=== PATIENT | female | born 1975 | race Caucasian/White ===

== ENCOUNTER → 2023-10-17 08:31 | Outpatient (REF) | payer OTHER, SELFPAY | LOC: HWRAD 08:31 | PROVIDERS: ATTENDING PHYSICIAN Nurse Practitioner Women's Health; FAMILY PHYSICIAN Physician Assistant Medical; REFERRING PHYSICIAN Obstetrics & Gynecology | DX: N92.6 Irregular menstruation, unspecified (principal) | CPT/HCPCS: 76830; 76856 ==

== ENCOUNTER → 2024-03-22 07:27 | Outpatient (REF) | payer OTHER, SELFPAY ==
[2024-03-22 10:18] LABS: ALT (SGPT) 25 U/L (0-35); AST (SGOT) 28 U/L (14-36); Albumin 4.3 g/dl (3.5-5.0); Alkaline Phosphatase 62 U/L (38-126); Blood Urea Nitrogen 12 mg/dl (7-17); Calcium 9.2 mg/dl (8.4-10.2); Carbon Dioxide 22 mmol/L (22-30); Chloride 106 mmol/L (98-107); Glucose 109 mg/dl (70-99); HDL Cholesterol 49 mg/dl; LDL Cholesterol, Calculated 94 mg/dl; Potassium 4.3 mmol/L (3.5-5.1); Sodium 141 mmol/L (135-145); Total Bilirubin 0.4 mg/dl (0.2-1.3); Total Cholesterol 157 mg/dl (50-199); Total Protein 6.8 g/dl (6.3-8.2); Triglyceride 71 mg/dl (10-149); Very Low Density Lipoprotein 14 mg/dl (0-30); eGFR > 60.00
[2024-03-22 11:28] LABS: Glycohemoglobin (HgbA1c) 5.4 % (4.0-5.6)
== END ==
LOC: HWWDC 07:27
PROVIDERS: ATTENDING PHYSICIAN Obstetrics & Gynecology; FAMILY PHYSICIAN Physician Assistant Medical
DX: Z12.31 Encounter for screening mammogram for malignant neoplasm of breast (principal); R03.0 Elevated blood-pressure reading, without diagnosis of hypertension; R73.01 Impaired fasting glucose; Z68.1 Body mass index [BMI] 19.9 or less, adult; E78.2 Mixed hyperlipidemia; N95.1 Menopausal and female climacteric states
CPT/HCPCS: 36415; 77063; 77067; 80053; 80061; 83036

== ENCOUNTER → 2024-07-27 13:21 | Outpatient (REF) | payer OTHER, SELFPAY | LOC: HWRAD 13:21 | PROVIDERS: ATTENDING PHYSICIAN Obstetrics & Gynecology; FAMILY PHYSICIAN Physician Assistant Medical | DX: N92.6 Irregular menstruation, unspecified (principal) | CPT/HCPCS: 76830; 76856 ==

== ENCOUNTER 2024-10-09 23:32 | Emergency (ER) | payer OTHER, SELFPAY ==
[2024-10-09 23:39] VITALS: BP 158/98
[2024-10-10 00:29] LABS: COVID-19 Antigen Negative (Negative); HCG, Serum Qualitative Screen Negative
[2024-10-10 00:37] LABS: Blood Urea Nitrogen 16 mg/dl (7-17); Calcium 9.2 mg/dl (8.4-10.2); Carbon Dioxide 22 mmol/L (22-30); Chloride 105 mmol/L (98-107); Glucose 144 mg/dl (70-99); Potassium 3.7 mmol/L (3.5-5.1); Sodium 135 mmol/L (135-145); eGFR > 60.00
[2024-10-10 00:43] LABS: Hematocrit 35.2 % (37.0-47.0); Hemoglobin 13.1 g/dL (12.0-16.0); Mean Corp Hgb Conc. 37.2 g/dL (33.0-37.0); Mean Corpuscular Volume 83.2 fL (81.0-99.0); Mean Platelet Volume 10.1 fL (7.4-10.4); Platelet Count 129 10^3/uL (130-400); Red Blood Cell Count 4.23 10^6/uL (4.20-5.40); Red Cell Dist. Width 12.1 % (11.5-14.5); White Blood Cell Count 3.1 10^3/uL (4.8-10.8)
[2024-10-10 00:49] VITALS: BMI 38.9
[2024-10-10 00:51] VITALS: BP 134/80
--- NOTE | 2024-10-10 01:57 | ED.GENMED ---
History of Present Illness
General
Chief Complaint: Fever
Source: patient
Exam Limitations: none
Time Seen by Provider: 10/10/24 01:45
History of Present Illness
History of Present Illness:
See MDM
Past History
Past History
ED Past Medical History: None
ED Past Surgical History: None
Social History
Tobacco: Non-smoker
Alcohol: None
Phy Exam
Physical Exam
Physical Exam:
See MDM
Sepsis
Sepsis Screening
Sepsis Assessment: Sepsis Ruled Out
Sepsis Screen
Sepsis Screen: Sepsis Ruled Out
Date: 10/10/24
Time: 02:01
Course
Orders/Labs/Results
Orders:
Orders
10/09/24 23:44
Test Result ONCE
10/09/24 23:53
Basic Metabolic Panel Urgent
COVID-19 Antigen Urgent
Source: Nasal Swab
Complete Blood Count/No Diff Urgent
HCG, Serum Qualitative Screen Urgent
Influenza A+B Rapid Molecular Urgent
EVELINE Source: Nasal Swab
Specimen Description:
Abnormal Lab Results
10/09/24
23:53
WBC 3.1 L 10^3/uL
(4.8-10.8)
Hct 35.2 L %
(37.0-47.0)
MCHC 37.2 H g/dL
(33.0-37.0)
Plt Count 129 L 10^3/uL
(130-400)
Glucose 144 H mg/dl
(70-99)
10/09/24 23:53
10/09/24 23:53
Vital Signs
Initial and Last Documented VS:
Initial Vital Signs
Temp Pulse Resp BP Pulse Ox
99.5 F 108 20 158/98 96
10/09/24 23:39 10/09/24 23:39 10/09/24 23:39 10/09/24 23:39 10/09/24 23:39
Last Documented Vital Signs
Temp Pulse Resp BP Pulse Ox
99.6 F 92 16 134/80 96
10/10/24 00:51 10/10/24 00:51 10/10/24 00:51 10/10/24 00:51 10/10/24 00:51
MDM/Problems Addressed
Differential Diagnosis Includes:
HPI and MDM Narrative:
49-year-old female presenting for evaluation of fever. It started earlier today. Patient was concerned because medicine was not helping with her fever. On arrival, she states the fever started to break and she started to feel better. She denies
any specific complaint such as shortness of breath, cough, abdominal pain, rash, throat pain, ear pain or urinary symptoms. Blood work was done prior to my assessment showing mild leukopenia which could point towards viral syndrome. COVID and flu
negative. Given that she is feeling better with no specific complaint, discussed likely viral syndrome
Physical exam
General: Well appearing and non-toxic
HEENT: protecting airway. Posterior pharynx clear
Neck: supple
CV: No evidence of cyanosis. Regular rate and rhythm
Resp: No accessory muscle use. Lungs clear
Abd: Non-distended and nontender
Extremities: No deformities
Neuro: alert
Psych: Normal affect
Skin: Intact
Problems Addressed including Acute and Chronic Conditions affecting care:
1. Viral syndrome
Acuity: acute
Prognosis: stable
Details: Patient feeling better after taking medicine at home. No suggestion of bacterial infection. No obvious source.
Differential Diagnosis (but not limited to): Viral syndrome, COVID, flu
Testing considered: Chest x-ray and urinalysis but she denies complaints for either
Drug therapy (if applicable): OTC meds, please see d/c instruction regarding Rx drugs
Amount and/or Complexity of Data Reviewed
Clinical info obtained from: Patient
External data reviewed: N/A
Labs I independently reviewed (but not limited to): Mild leukopenia
Radiology: N/A
Pulse Ox: not hypoxic
EKG independently reviewed: N/A
Apprentice Painter Brush: N/A
Critical Care: N/A
Risk of Complication:
Social Determinants of health: Good social support
Discussed with other providers: N/A
Escalation of Care includes Admit/Obs: After being observed in the Emergency Department, pt stable for discharge.
Occasional wrong word or 'sound a like' substitutions may have occurred due to the inherent limitations of voice recognition software. Read the chart carefully and recognize, using context, where substitutions have occurred.
*Critical Care Note
Total Time (30-74mins, 75-104mins- exclusive of procedures): Not Applicable
ED Attending Note
-
Portions of this chart may have been created with voice recognition software.� Occasional wrong word or��sound alike� substitutions may have occurred due to the inherent limitations of voice recognition software.
Discharge Plan
Departure
Patient Disposition: Home (Routine Discharge)
Date of Disposition: 10/10/24
Time of Disposition: 02:00
Patient with high blood pressure during this ER visit?: No
Discharge Problem:
Acute viral syndrome
Instructions: Fever, Adult (DC), Viral Syndrome (DC)
Referrals:
Stefanie Vilchis PA-C [Family Provider] -
Activity Restrictions/Additional Instructions:
Please return for any worsening symptoms.
You may return at any time if you have further concerns.
Please follow up with your doctor at the first available appointment, preferably this week.
Please alternate between Tylenol and Motrin every 4 hours or so until symptoms improve.
Thank you for choosing [facility].
Interventions
Interventions:
*Risk Screen - Suicide Last Done: 10/09/24 23:39
*General Assessment Last Done: 10/10/24 00:47
*Neglect/Abuse Screening Last Done: 10/09/24 23:39
*ED- Fall Risk Assessment Last Done: 10/10/24 00:47
*ED COVID-19 Vaccine History Last Done: 10/10/24 00:47
ED- Neurological Assessment Last Done: 10/10/24 00:47
ED-Skin Assessment Last Done: 10/10/24 00:53
Discharge Date and Time
Print Language: ALBANIAN
[2024-10-10 02:15] VITALS: BP 123/78
== END 2024-10-10 02:18 | disposition home or self-care (01) ==
LOC: EMR 23:32
PROVIDERS: Emergency Medicine; EMERGENCY PHYSICIAN Student in an Organized Health Care Education/Training Program; FAMILY PHYSICIAN Physician Assistant Medical
DX: B34.9 Viral infection, unspecified (principal)
CPT/HCPCS: 99283; 80048; 84703; 85027; 87502; 87811

== ENCOUNTER 2024-10-11 12:35 | Inpatient (IN) | payer OTHER, SELFPAY ==
[2024-10-11 03:49] VITALS: BP 150/88
[2024-10-11 04:01] VITALS: BMI 36.0
--- NOTE | 2024-10-11 04:11 | ED.GENMED ---
History of Present Illness
General
Chief Complaint: Urinary Symptoms
Source: patient
Exam Limitations: none
Time Seen by Provider: 10/11/24 04:01
Nursing documentation reviewed up to this point in time: agreed with
History of Present Illness
History of Present Illness:
49-year-old female with a past medical history of hyperthyroidism presents emergency department today with concerns of fevers and chills as well as orange-colored urine. She was seen in our ER Friday for fevers of unknown origin and she had blood
work done as well as viral testing which was negative. She states that she has been taking Tylenol Motrin for the fever however today, she woke up in the middle of the night and was found to have orange-colored urine which concerned her. She
denies any abdominal pain, body aches, decreased appetite, vomiting. She states that she has had intermittent nausea. She is not healthcare worker, she denies any IV drug use, denies any body flu exposure. She denies any sick contacts.She denies
any dysuria, she denies any new medications, she has any blood in her urine, denies any rectal bleeding. Her last menstrual period was 4 months ago.
Past History
Past History
ED Past Medical History: None
ED Past Surgical History: None
Social History
Tobacco: Non-smoker
Alcohol: None
Review of Systems
Review of Systems
All Other Systems: ROS reviewed and negative except as documented in HPI and ROS
Phy Exam
Physical Exam
Physical Exam:
General: Patient is well appearing and in no acute distress; non-toxic
Skin: Warm and dry, no rashes or lesions
Head: Normocephalic, atraumatic
Eyes: Sclera non-icteric. EOMs intact.
Cardiac: Regular rate and rhythm, no murmurs
Peripheral Vascular: No lower extremity swelling or edema
Pulm: Normal respiratory effort, no wheezes, rales, or rhonchi
Abdomen: No abdominal tenderness to palpation
Neuro: CN II-XII intact, no focal neurologic deficits.
Psychiatric: Appropriate mood and affect.
Course
Orders/Labs/Results
Orders:
Orders
10/11/24 04:06
Urinalysis Reflex To Culture Urgent
Date Specimen was Collected: 10/11/24
Time Specimen was Collected: 04:05
Urine Microscopic Reflex Cult Urgent
Urine Culture Urgent
EVELINE Source: U
Specimen Description:
Date Specimen was Collected: 10/11/24
Time Specimen was Collected: 04:05
10/11/24 05:00
CPK [Creatine Phosphokinase] Urgent
Complete Blood Count/With Diff Urgent
Comprehensive Metabolic Panel Urgent
Lipase Urgent
Comment: ADD ON
Monotest Urgent
Comment: ADD ON
10/11/24 05:42
US Abdomen Complete/Upper Urgent
Comment:
Reason For Exam: transaminitis, bilirubinurea
10/11/24 05:48
Add On- LAB Urgent
Tests Added?: mono and lipase
10/11/24 05:55
Hepatitis A Antibody, Total Urgent
Hepatitis A IgM Antibody Urgent
Hepatitis B Core Ab, IgM Urgent
Hepatitis B Core Ab, Total Urgent
Hepatitis B Surface Antibody Urgent
Hepatitis B Surface Antigen Urgent
Hepatitis C Antibody Urgent
10/11/24 06:55
Anaplasma phagocytophila IgG/M [S] Urgent
Lyme Progressive Urgent
Babesia Smear [Blood Parasites] Urgent
EVELINE Source: Blood/Venous
Specimen Description:
Abnormal Lab Results
10/11/24 10/11/24
04:06 05:00
WBC 2.1 L* 10^3/uL
(4.8-10.8)
Plt Count 100 L D 10^3/uL
(130-400)
Chloride 109 H mmol/L
(98-107)
BUN 6 L mg/dl
(7-17)
Glucose 108 H mg/dl
(70-99)
Total Bilirubin 1.7 H mg/dl
(0.2-1.3)
AST 356 H U/L
(14-36)
ALT 552 H* U/L
(0-35)
Alkaline Phosphatase 167 H U/L
(38-126)
Total Protein 6.1 L g/dl
(6.3-8.2)
Ur Occult Blood Reflex 3+ A
(Negative)
Urine Bilirubin 1+ A
(Negative)
Urine Urobilinogen 3+ A
(Neg - 1+)
Leukocyte Esterase Rfl 1+ A
(Negative)
Urine RBC 16-20 A /HPF
(0-2)
Urine Bacteria (Reflex) Moderate A
(Negative)
Urine Albumin (Reflex) 2+ A
(Neg - Trace)
10/11/24 05:00
10/11/24 05:00
Vital Signs
Initial and Last Documented VS:
Initial Vital Signs
Temp Pulse Resp BP Pulse Ox
97.9 F 84 18 150/88 98
10/11/24 03:49 10/11/24 03:49 10/11/24 03:49 10/11/24 03:49 10/11/24 03:49
Last Documented Vital Signs
Temp Pulse Resp BP Pulse Ox
98.6 F 82 20 139/78 100
10/11/24 07:05 10/11/24 07:05 10/11/24 07:05 10/11/24 07:05 10/11/24 07:05
MDM/Problems Addressed
Differential Diagnosis Includes:
Acute cystitis, viral hepatitis, acalculous cholecystitis, tickborne illness, malignancy
MDM/Problems Addressed:
49 y/o female for an acute hepatitis/fevers of unknown origin. 49 y/o female hx of hyperthyroidism comes in this morning as a bounce back for fevers of unknown origin. On Sat 4, she started to have fevers, Tmax 102 with no other associated
symptoms. She was seen in our ER that night, tested negative for flu and covid, cbc and bmp unremarkable. She has been managing her fevers with tylenol and motrin. This morning she woke up and noticed that her urine was orange and reported to the
ER. She has no hepatitis risk factors. She has no belly pain, dysuria, sob, cp. On exam, she looks great and she is afebrile. Her wbc count is 2.1, she is thrombocytopenic at 100, her total bili is 1.7, ast is 356, alt is 552 urine shows rbcs and
bilirubin. Her WBC and bili have trended down since Friday. We did get abdominal ultrasound as well which was negative. Hepatitis panels and tick borne illness studies pending. In light of persistent fevers, worsening blood work, new
transaminitis, and bounce back visit, will admit for further evaluation workup. Case discussed with the ER attending who agrees with plan. Patient referred for admission
*Pulse Oximetry
Patient hypoxic: no
*Critical Care Note
Total Time (30-74mins, 75-104mins- exclusive of procedures): Not Applicable
Data Reviewed
Review of Other/Old Records Reveals: Records (Reviewed ER/documentation from/ reviewed ER/documentation from/, patient. Seen for viral syndrome, discharged after unremarkable workup)
ED Attending Note
-
Portions of this chart may have been created with voice recognition software.� Occasional wrong word or��sound alike� substitutions may have occurred due to the inherent limitations of voice recognition software.
Discharge Plan
Departure
Patient Disposition: Admit
Date of Disposition: 10/11/24
Time of Disposition: 07:20
Admit to: Med/Surg
Presentation/result/management discussed w/ accepting MD/DO: Hospitalist
Patient with high blood pressure during this ER visit?: Yes
Condition: Fair
Discharge Problem:
Acute hepatitis
Prescriptions:
No Action
No Current Medications
0
Referrals:
Stefanie Vilchis PA-C [Family Provider] -
Interventions
Interventions:
*Risk Screen - Suicide Last Done: 10/11/24 03:49
*General Assessment Last Done: 10/11/24 04:01
*Neglect/Abuse Screening Last Done: 10/11/24 03:49
*ED- Fall Risk Assessment Last Done: 10/11/24 04:01
*ED COVID-19 Vaccine History Last Done: 10/11/24 04:01
ED-Female Genitourinary Assessment Last Done: 10/11/24 04:01
Discharge Date and Time
Print Language: CHINESE
[2024-10-11 04:19] LABS: Urine Albumin 2+ (Neg - Trace); Urine Bilirubin 1+ (Negative); Urine Character Clear (Clear); Urine Color Yellow; Urine Glucose Negative (Negative); Urine Ketone Negative (Negative); Urine Leukocyte 1+ (Negative); Urine Nitrite Negative (Negative); Urine Occult Blood 3+ (Negative); Urine Urobilinogen 3+ (Neg - 1+)
[2024-10-11 05:36] LABS: ALT (SGPT) 552 U/L (0-35); AST (SGOT) 356 U/L (14-36); Albumin 3.6 g/dl (3.5-5.0); Alkaline Phosphatase 167 U/L (38-126); Blood Urea Nitrogen 6 mg/dl (7-17); Calcium 8.7 mg/dl (8.4-10.2); Carbon Dioxide 25 mmol/L (22-30); Chloride 109 mmol/L (98-107); Creatine Phosphokinase 98 U/L (30-135); Estimated Creatinine Clearance 95 ml/min; Glucose 108 mg/dl (70-99); Potassium 3.7 mmol/L (3.5-5.1); Sodium 139 mmol/L (135-145); Total Bilirubin 1.7 mg/dl (0.2-1.3); Total Protein 6.1 g/dl (6.3-8.2); eGFR > 60.00
[2024-10-11 06:06] LABS: Lipase 165 U/L (23-300)
[2024-10-11 06:06] LABS: Urine Squamous Cell >30 /LPF (Few)
[2024-10-11 06:11] LABS: Urine Bacteria Moderate (Negative); Urine Red Blood Cell 16-20 /HPF (0-2)
[2024-10-11 06:11] LABS: Monotest Negative (Negative)
[2024-10-11 06:22] LABS: Hematocrit 38.6 % (37.0-47.0); Hemoglobin 13.8 g/dL (12.0-16.0); Mean Corp Hgb Conc. 35.8 g/dL (33.0-37.0); Mean Corpuscular Hgb 29.5 pg (27.0-31.0); Mean Corpuscular Volume 82.5 fL (81.0-99.0); Mean Platelet Volume 9.7 fL (7.4-10.4); Platelet Count 100 10^3/uL (130-400); Red Blood Cell Count 4.68 10^6/uL (4.20-5.40); Red Cell Dist. Width 12.5 % (11.5-14.5); White Blood Cell Count 2.1 10^3/uL (4.8-10.8)
[2024-10-11 07:05] VITALS: BP 139/78
[2024-10-11 08:30] LABS: Band Neutrophils 14 % (0-3); Lymphocytes 27 % (20-51); Metamyelocytes 1 % (-); Monocytes 4 % (2-9)
[2024-10-11 08:31] LABS: Absolute Neutrophils -Man Diff 1.3 10^3/uL (1.4-6.5); Atypical Lymphocytes 2 %; Segmented Neutrophils 52 % (42-75)
[2024-10-11 08:32] LABS: Acanthocytes FEW; Anisocytosis Slight; Normal RBC Morphology No; Ovalocytes Slight; Platelets Checked Yes; Total Cells Counted 100
--- NOTE | 2024-10-11 08:59 | EDRN ---
hospitalist currently at the pts bedside
--- NOTE | 2024-10-11 11:06 | CON.GI ---
Addendum entered and electronically signed by Hortencia Wyatt DO 10/11/24 16:30:
The patient was seen and examined by me independently in collaboration with the nurse practitioner.
Past medical history/social history/medications/allergies/family history reviewed.
Lab data and imaging data reviewed.
Briefly, patient is a 49-year-old female past medical history Graves' disease status post thyroidectomy with resultant hypothyroidism, hyperlipidemia, hypertension, depression admitted with 2 days of fevers and headaches found to have multiple lab
abnormalities including leukopenia, thrombocytopenia and elevated liver enzymes. She denies travel, sick contacts, recent antibiotics, exposure ticks. She does report taking some supplements. When she noticed her urine turn orange, it prompted her
to come in for evaluation. LFTs elevated in predominantly hepatocellular pattern, Tbili 1.7, AST 356, ALT 552, Alk phos 167. CK normal. Lipase normal.
Abdominal US shows normal appearance of her liver. Coags pending.
Suspect primary hematologic or infectious etiology rather than primarily liver issue. Will follow along as her studies continue to result.
Original Note:
Consultation
-
Date/Time Consultation Requested: 10/11/24 1050
Date/Time Consultation Performed: 10/11/24 1100
Requesting Provider: Rosa Maria Porter MD
Performing Provider: HEIDY Neal, Nga Wyatt DO
Reason for Consultation: increased LFT's
Medical History
Chief Complaint / HPI
Chief Complaint: fever, dark urine
History of Present Illness:
Pt is a 49yo with hx graves disease with prior thyroidectomy, HTN, hyperlipidemia, depression recent increased Lexapro dose, with ER eval 4/ with fever. ER labs with neg flu, WBC 3.1 with platelets 129,000 and glucose 144 and LFT's were not
checked. She was discharged with concern for viral syndrome. She returned with dark urine and nausea. On returns noted with WBC 2.1, platelets 100,000 bili 1,7, AST 356, ALT 552, alk phos 67 albumin 3.6, lipase 165, CK 98, with UA + for bacteria
and bilirubin CK 98. 4/7 US completed with liver normal size. She denies any recent travel, abx, sick contact.
In review with patient she admits to hard work out on Friday with muscle soreness after completed . She took new supplement of Creatine Friday and Friday. On Friday she developed fever up to 102. She persisted with fever and had evaluation
in ER and discharged. She returned as noted orange color urine. She admits to multiple supplement but only new supplement was creatine. She did also increased increased Lexapro dose about 2 weeks ago. She did take 2 doses of Tylenol and 2 doses
of Advil after fever symptoms started. No hx ETOH use, tattoos, mushroom ingestion, recent rashes, tick bites, hx hepatitis or prior liver problems. She otherwise admits to intentional wt loss 15-16 lbs over last years without use of wt loss
medication, dysphagia, sore throat, GERD, nausea, vomiting, abdominal pain, diarrhea, constipation or rectal bleeding.
Past Medical History
Past Medical History: HTN, Hypercholesterolemia, Psychiatric (depression) and Other (pre DM, graves disease)
Past Surgical History: Other (thyroidectomy)
Social History
Tobacco: Non-Smoker
Alcohol: None
Drug: None
Personal:
Living: With Family
Employment: Employed
Family History
Family History: Other (sister with fatty liver and lipodistrophy)
Allergies / Home Medications
Allergy/AdvReac Type Severity Reaction Status Date / Time
amoxicillin [From Augmentin] Allergy Unknown Verified 10/11/24 03:51
clavulanic acid Allergy Unknown Verified 10/11/24 03:51
[From Augmentin]
egg Allergy Unknown Verified 10/11/24 03:51
Tetracyclines Allergy Unknown Verified 10/11/24 03:51
�Medication �Instructions �Recorded
Beet Root Tablets 1 tab PO DAILY 10/11/24
acetaminophen 325 mg tablet 650 mg PO Q4HPRN PRN fever 10/11/24
(Tylenol)
ascorbic acid (vitamin C) 500 mg 500 mg PO DAILY 10/11/24
tablet (Vitamin C)
cholecalciferol (vitamin D3) 50 50 mcg PO DAILY 10/11/24
mcg (2,000 unit) tablet (Vitamin
D3)
coQ10 (ubiquinol) 100 mg capsule 100 mg PO DAILY 10/11/24
escitalopram oxalate 20 mg tablet 30 mg PO HS 10/11/24
(Lexapro)
ibuprofen 200 mg tablet (Advil) 400 mg PO Q8HPRN PRN mild pain 10/11/24
levothyroxine 88 mcg tablet 88 mcg PO DAILY 10/11/24
(Synthroid)
loratadine 10 mg tablet (Claritin) 10 mg PO DAILY 10/11/24
omega-3 fatty acids-fish oil 684 1 cap PO DAILY 10/11/24
mg-1,200 mg capsule,delayed release
rosuvastatin 5 mg tablet (Crestor) 5 mg PO QPM 10/11/24
therapeutic multivitamin 10 ml PO DAILY 10/11/24
Review of Systems
-
History Source: Patient and Family
Constitutional: Reports Fever and Weight Loss
EENT: Reports No Symptoms
Respiratory: Reports No Symptoms
Cardiac: Reports No Symptoms
Abdomen/GI: Reports No Symptoms
: Reports Dark Urine
Musculoskeletal: Reports Joint Pain (with recent work out now improved )
Skin: Reports No Symptoms
Neurological: Reports Headache (mild sinus DAMON)
Endocrine: Reports No Symptoms
Hematologic/Lymphatic: Reports No Symptoms
Vital Signs
Temp Pulse Resp BP Pulse Ox
98.6 F 82 20 139/78 100
10/11/24 07:05 10/11/24 07:05 10/11/24 07:05 10/11/24 07:05 10/11/24 07:05
Physical Exam
Exam
General: Well Developed, Well Nourished and No Apparent Distress
HEENT: Normocephalic and Anicteric
Respiratory: Clear
Cardiac: Regular Rhythm
GI: Soft, Non Tender and Non Distended
Musculoskeletal: No Clubbing and No Cyanosis
Skin: Warm and Dry
Neuro: Awake, Alert and AO x 3
Psych: Calm
Results
WBC 2.1 10^3/uL (4.8-10.8) L* 10/11/24 05:00
Hgb 13.8 g/dL (12.0-16.0) 10/11/24 05:00
Hct 38.6 % (37.0-47.0) 10/11/24 05:00
MCV 82.5 fL (81.0-99.0) 10/11/24 05:00
Plt Count 100 10^3/uL (130-400) L D 10/11/24 05:00
Sodium 139 mmol/L (135-145) 10/11/24 05:00
Potassium 3.7 mmol/L (3.5-5.1) 10/11/24 05:00
Chloride 109 mmol/L (98-107) H 10/11/24 05:00
Carbon Dioxide 25 mmol/L (22-30) 10/11/24 05:00
BUN 6 mg/dl (7-17) L 10/11/24 05:00
Creatinine 0.7 mg/dL (0.6-1.0) 10/11/24 05:00
Calcium 8.7 mg/dl (8.4-10.2) 10/11/24 05:00
Total Bilirubin 1.7 mg/dl (0.2-1.3) H 10/11/24 05:00
AST 356 U/L (14-36) H 10/11/24 05:00
ALT 552 U/L (0-35) H* 10/11/24 05:00
Alkaline Phosphatase 167 U/L (38-126) H 10/11/24 05:00
Lipase 165 U/L (23-300) 10/11/24 05:00
Diagnostic Image Results:
10/11/24 US IMPRESSION: Unremarkable ultrasound of the abdomen
Prior GI Procedures:
EGD: none
Colonoscopy: x 2 years ago for rectal bleeding years ago, recent neg Cologuard
Assessment / Plan
-
Pt is a 49yo with hx graves disease with prior thyroidectomy, HTN, hyperlipidemia, depression recent increased Lexapro dose, with ER eval 10/09 with fever after noted hard workout on 10/08. ER labs with neg flu, WBC 3.1 with platelets 129,000 and
glucose 144 and LFT's were not checked. She was discharged with concern for viral syndrome. She returned with dark urine and nausea. On returns noted with WBC 2.1, platelets 100,000 bili 1,7, AST 356, ALT 552, alk phos 67 albumin 3.6, lipase 165,
CK 98, with UA + for bacteria and bilirubin CK 98. 10/11 US completed with liver normal size. She denies any recent travel, abx, sick contact. No hx prior liver problems. She took new supplement of Creatine Friday and Friday. On Friday she
developed fever up to 102. She persisted with fever and had evaluation in ER and discharged. She returned as noted orange color urine. She admits to multiple supplement but only new supplement was creatine. She did also increased increased
Lexapro dose about 2 weeks ago. She did take 2 doses of Tylenol and 2 doses of Advil after fever symptoms started. No hx ETOH use, tattoos, mushroom ingestion, recent rashes, tick bites, hx hepatitis or prior liver problems.
-fever with bandemia
-increased LFT's with dark urine on admission
-recent hard workout with creatine use prior to admission
-thrombocytopenia
other med problems:
-depression with recent increased dose of Lexapro
-thyroidectomy/ hx graves disease
-HTN
-hyperlipidemia
PLAN:
Etiology of fever with elevated LFT's and leukocytopenia, thrombocytopenia related to viral illness vs other
pt with recent increased dose of Lexapro with rare post marketing liver dysfunction, immune thrombocytopenia per up to date
with recent workout and normal CK less likely Rhabdo
lyme negative
await INR
await hepatitis panel , EBV, CMV
BART, Tylenol level, pending
add blood cultures with fever
trend labs and INR
with concern for liver dysfunction and thrombocytopenia review with patient to hold liver toxic medication, ETOH (pt denies use) and hold creatine that was just started
will review with Dr. Wyatt for further recommendations
-
-
Thank you for consultation and allowing me to participate in the patient's care. Please call the sed special education teacher GI physician during the after hours with any questions or concerns.
--- NOTE | 2024-10-11 11:35 | EDRN ---
gastroenterology currently at the pts bedside
--- NOTE | 2024-10-11 11:45 | CM ---
CM met with pt and spouse bedside
[place], full flight to 2nd floor
Pt is indep with her ADLs, denies use of DMEs
Denies financial insecurities
Rx coverage managed through [facility]
PCP- Stefanie Vilchis
Rx- [facility]
Discharge Disposition- anticipate home no needs
[2024-10-11 11:53] LABS: Lyme Antibody Screen, EIA Negative (Negative)
[2024-10-11 12:00] VITALS: BP 136/84
[2024-10-11 14:45] VITALS: BP 127/91
--- NOTE | 2024-10-11 14:51 | EDRN ---
this RN called the receiving unit and notified them that paper report was going to be tubed up
[2024-10-11 15:30] VITALS: BMI 35.6
[2024-10-11 15:34] VITALS: BP 137/85
[2024-10-11] MEDS: NSS 1000 IV (15:48)
[2024-10-11] MEDS: MOTRIN 400 MG PO (16:31)
[2024-10-11 17:48] LABS: Creatine Phosphokinase 81 U/L (30-135)
[2024-10-11 18:30] LABS: Erythrocyte Sed Rate 18 mm/hour (0-20)
[2024-10-11 19:00] LABS: Hepatitis B Surface Antigen Negative (Negative)
[2024-10-11 19:19] LABS: Hepatitis A Antibody, Total Negative (Negative); Hepatitis B Core Ab, Total Negative (Negative); Hepatitis B Surface Antibody Negative; Hepatitis C Antibody Negative (Negative)
--- NOTE | 2024-10-11 19:43 | HPS.HSE ---
Addendum entered and electronically signed by Michelle Peraza MD 10/11/24 20:29:
I personally performed a history and physical exam of the patient and discussed management with the resident. I reviewed the resident's note and agree with the documented findings and plan of care HPI/CC.
GENERAL: well developed, well nourished, female in no apparent distress
HEENT: NC/AT--no scleral icterus, no jaundice
HEART: regular rate and rhythm, +S1, +S2
LUNGS : clear to auscultation bilaterally
ABDOM: soft, nontender, nondistended, + bowel sounds
EXT: no cyanosis, clubbing, or edema
NEUROLOGIC: grossly intact
Elevated transaminases/Hyperbilirubinemia--possibly due to Hepatitis secondary to either viral infection, autoimmune condition or drug-induced--admit--trend LFTs--lexapro dose increased with tylenol use, in setting of statin plus weight training (no
rhabdo as CPK WNL)--consult GI--check acetaminophen level, EBV, CMV, vial hepatitis studies, BART, ESR, CRP--cont IVF--US neg for stones or dilated ducts--no ETOH use--There is no jaundice, hepatomegaly, right upper quadrant tenderness, fatigue or
malaise, pruritus. She does have dark urine and a low-grade fever--Babesia smear is negative--Hold all hepatotoxic drugs such as rosuvastatin
Low-grade fever--still think viral--Patient developed a low-grade fever 100.8, gave Motrin 400 every 6 as needed--Continue to trend fever curve
Leukopenia/thrombocytopenia--suspect viral--Babesia neg--No diarrhea, fatigue or malaise, skin infections, mouth ulcers, frequent or recurrent infections--Patient is stable and no bleeding bruising, petechiae, nosebleeds, gum bleeding. She does
have hematuria.
Hyperlipidemia-Hold rosuvastatin because of hepatotoxic properties
Hypothyroidism-Continue levothyroxine sodium 88 mcg
DVT proph--Lovenox
code status --Full code
Original Note:
Family Physician
-
Family Physician: Stefanie Vilchis
Chief Complaint
-
Fever of unknown origin, chills, orange-colored urine
History of Present Illness
Patient is a 49-year-old female who is full code with a past medical history of hypothyroidism and hyperlipidemia who presented to the emergency department because she had concerns of orange-colored urine. Previously she had presented to the
[place] emergency department on October 09, 2024 for fever unknown origin which was measured at 102 at home and chills. They did a COVID test and influenza test which were both negative. She then took Motrin at home and the fever and the chills
both subsided but then on Friday she started to experience orange-colored urination which was concerning for her. No abdominal pain, body aches, decreased appetite, vomiting, nausea, recent travel, outdoor activity.
Medical History
Past Medical History
Past Medical History: Reports Hypercholesterolemia and Hypothyroidism
Past Surgical History: Reports Other (Had entire thyroid gland removed 15 years ago due to Graves' disease)
Social History
Tobacco: Non-smoker
Alcohol: None
Drug: None
Personal:
Living: With Family
Employment: Employed
Family History
Family History: Not pertinent
Allergies / Home Medications
Allergies reflects when Allergies were last updated in [facility].
Home Medications with original date entered in [facility]
Allergy/Medication List:
Allergies
Allergy/AdvReac Type Severity Reaction Status Date / Time
amoxicillin [From Augmentin] Allergy Unknown Verified 10/11/24 03:51
clavulanic acid Allergy Unknown Verified 10/11/24 03:51
[From Augmentin]
egg Allergy Unknown Verified 10/11/24 03:51
Tetracyclines Allergy Unknown Verified 10/11/24 03:51
Home Medications
Beet Root Tablets 1 tab PO DAILY 10/11/24
acetaminophen 325 mg tablet (Tylenol) 650 mg PO Q4HPRN PRN fever 10/11/24
ascorbic acid (vitamin C) 500 mg tablet (Vitamin C) 500 mg PO DAILY 10/11/24
cholecalciferol (vitamin D3) 50 mcg (2,000 unit) tablet (Vitamin D3) 50 mcg PO DAILY 10/11/24
coQ10 (ubiquinol) 100 mg capsule 100 mg PO DAILY 10/11/24
drospirenone (contraceptive) 4 mg (28) tablet (Slynd) 4 mg PO DAILY 10/11/24
escitalopram oxalate 20 mg tablet (Lexapro) 30 mg PO HS 10/11/24
ibuprofen 200 mg tablet (Advil) 400 mg PO Q8HPRN PRN mild pain 10/11/24
levothyroxine 88 mcg tablet (Synthroid) 88 mcg PO DAILY 10/11/24
loratadine 10 mg tablet (Claritin) 10 mg PO DAILY 10/11/24
omega-3 fatty acids-fish oil 684 mg-1,200 mg capsule,delayed release 1 cap PO DAILY 10/11/24
rosuvastatin 5 mg tablet (Crestor) 5 mg PO QPM 10/11/24
therapeutic multivitamin 10 ml PO DAILY 10/11/24
Review of Systems
-
Constitutional: Reports Fever; Denies Chills
Respiratory: Denies Cough or Trouble Breathing
Cardiac: Denies Chest Pain, Palpitations or Syncope
Abdomen/GI: Denies Abdominal Pain, Nausea, Vomiting, Diarrhea or Constipated
: Denies Dysuria
Neurological: Denies Dizzy or Weakness
Hematologic/Lymphatic: Denies Bleeding
Psych: Reports Calm
Physical Exam
Vital Signs
Vital Signs
Temp Pulse Resp BP Pulse Ox
99.3 F 92 16 137/85 98
10/11/24 17:57 10/11/24 15:34 10/11/24 15:34 10/11/24 15:34 10/11/24 15:34
Physical Exam
HEENT: NormoCephalic
Respiratory: Clear
Cardiac: S1/S2 and Regular Rhythm
GI: Soft, Non Tender, Non Distended and Normal Bowel Sounds
Musculoskeletal: No Clubbing and No Edema
Skin: Warm and Dry
Neuro: Awake, Alert, Oriented and AO x 3
Psych: Calm
Laboratory Results
-
10/11/24 05:00
10/11/24 05:00
Laboratory Results
Total Bilirubin 1.7 mg/dl (0.2-1.3) H 10/11/24 05:00
AST 356 U/L (14-36) H 10/11/24 05:00
ALT 552 U/L (0-35) H* 10/11/24 05:00
Alkaline Phosphatase 167 U/L (38-126) H 10/11/24 05:00
Lipase 165 U/L (23-300) 10/11/24 05:00
Data Reviewed
-
Lab Data: Labs Reviewed by me and Discussed with Physician
Impression/Plan
-
Hepatitis secondary to either viral infection or autoimmune condition or drug-induced
Elevated transaminases
Hyperbilirubinemia:
-Patient has elevated total bilirubin, aminotransferases, urobilinogen
-There is no jaundice, hepatomegaly, right upper quadrant tenderness, fatigue or malaise, pruritus. She does have dark urine and a low-grade fever.
-Ordered a viral hepatitis panel
-Ordered a cytomegalovirus, Suze-Omer virus, mononucleosis screening tests
-Ordered ESR and CRP
-Ordered a Tylenol level test
-Started patient on IV fluids
-Babesia is negative
- Trend LFTs and CBC
-Ordered BART levels for possible autoimmune hepatitis causes
-Started patients on IV fluids
-Hold all hepatotoxic drugs such as rosuvastatin
-Gastroenterology is consulted
-Patient is admitted to [facility]
Low-grade fever:
-Patient developed a low-grade fever 100.8, gave Motrin 400 every 6 as needed
-Continue to trend fever curve
Rhabdomyolysis:
-Patient said that before onset of symptoms she exercised heavier than usual
-No muscle pain, muscle weakness, decreased urine output, confusion, weakness. However there is dark urine.
-Urine analysis shows 16-20 red blood cells.
-Ordered a CPK
-Ordered a myoglobin
-Started patient on IV fluids
Leukopenia:
-WBC level is 2.1
-Trend WBC level
-No diarrhea, fatigue or malaise, skin infections, mouth ulcers, frequent or recurrent infections
-Suspect this to be related to hepatic cause
Thrombocytopenia:
-100 which is trending down from 125 on initial admission on October 09, 2024
-Patient is stable and no bleeding bruising, petechiae, nosebleeds, gum bleeding. She does have hematuria.
-Continue to trend platelets
Hyperlipidemia:
-Hold rosuvastatin because of hepatotoxic properties
Hypothyroidism:
-Continue levothyroxine sodium 88 mcg
DVT prophylaxis is Lovenox 40
Full code
[2024-10-11 22:31] LABS: Acetaminophen < 10 ug/ml (10-30)
[2024-10-11 23:34] VITALS: BP 124/70
[2024-10-12] MEDS: NSS 1000 IV ×3 (01:56→22:37)
[2024-10-12] MEDS: SYNTHROID 88 MCG PO (05:07)
[2024-10-12 07:10] VITALS: BP 152/88
[2024-10-12 08:02] LABS: INR 0.99; PT 13.4 Sec (11.4-14.6)
[2024-10-12 08:42] LABS: ALT (SGPT) 428 U/L (0-35); AST (SGOT) 234 U/L (14-36); Albumin 3.3 g/dl (3.5-5.0); Alkaline Phosphatase 151 U/L (38-126); Blood Urea Nitrogen 8 mg/dl (7-17); Calcium 8.5 mg/dl (8.4-10.2); Carbon Dioxide 22 mmol/L (22-30); Chloride 110 mmol/L (98-107); Estimated Creatinine Clearance 110 ml/min; Glucose 121 mg/dl (70-99); Potassium 3.7 mmol/L (3.5-5.1); Sodium 139 mmol/L (135-145); Total Bilirubin 0.9 mg/dl (0.2-1.3); Total Protein 5.8 g/dl (6.3-8.2); eGFR > 60.00
[2024-10-12 08:49] LABS: Hemoglobin 12.3 g/dL (12.0-16.0); Mean Corp Hgb Conc. 36.2 g/dL (33.0-37.0); Mean Corpuscular Hgb 29.5 pg (27.0-31.0); Mean Corpuscular Volume 81.5 fL (81.0-99.0); Platelet Count 103 10^3/uL (130-400); Red Blood Cell Count 4.17 10^6/uL (4.20-5.40); Red Cell Dist. Width 12.5 % (11.5-14.5)
[2024-10-12 10:11] LABS: Absolute Neutrophils -Man Diff 1.1 10^3/uL (1.4-6.5); Anisocytosis Slight; Atypical Lymphocytes 2 %; Band Neutrophils 13 % (0-3); Lymphocytes 38 % (20-51); Monocytes 4 % (2-9); Normal RBC Morphology No; Ovalocytes Slight; Platelets Checked Yes; Segmented Neutrophils 43 % (42-75); Total Cells Counted 100
--- NOTE | 2024-10-12 14:55 | W.PN.GI.CBS2 ---
Today's Communication / Plan
-
-- LFTs, blood cultures pending, INR in am
Assessment / Plan
-
Pt is a 49yo with hx graves disease with prior thyroidectomy, HTN, hyperlipidemia, depression recent increased Lexapro dose, with ER eval 10/09 with fever after noted hard workout on 10/08. ER labs with neg flu, WBC 3.1 with platelets 129,000 and
glucose 144 and LFT's were not checked. She was discharged with concern for viral syndrome. She returned with dark urine and nausea. On returns noted with WBC 2.1, platelets 100,000 bili 1,7, AST 356, ALT 552, alk phos 67 albumin 3.6, lipase 165,
CK 98, with UA + for bacteria and bilirubin CK 98. 10/11 US completed with liver normal size. She denies any recent travel, abx, sick contact. No hx prior liver problems. She took new supplement of Creatine Friday and Friday. On Friday she
developed fever up to 102. She persisted with fever and had evaluation in ER and discharged. She returned as noted orange color urine. She admits to multiple supplement but only new supplement was creatine. She did also increased increased
Lexapro dose about 2 weeks ago. She did take 2 doses of Tylenol and 2 doses of Advil after fever symptoms started. No hx ETOH use, tattoos, mushroom ingestion, recent rashes, tick bites, hx hepatitis or prior liver problems.
-fever with bandemia
-increased LFT's with dark urine on admission
-recent hard workout with creatine use prior to admission
-thrombocytopenia
other med problems:
-depression with recent increased dose of Lexapro
-thyroidectomy/ hx graves disease
-HTN
-hyperlipidemia
PLAN:
#hepatocellular injury - normal INR
-- low plts, leukopenia, orange urine, but normal bili
-- urine showed blood, consider screening for AIPorphyia, however, no other symptoms
-- highly likely viral given leukopenia, thrombocytopenia, fever
-- discussed with primary team - will do screening for AIP
-- avoid hepatotoxic medications at this point and AVOID all supplements until LFTs return to normal
-- BART pending
-- normal CK
lyme negative, acute hepatitis panel negative, blood cultures pending
-- check LFTs and INR in am
Overall, with normal bili and INR, not highly concerning but will need monitored
Subjective
Subjective
Date of Service: October 12, 2024
Patient feels better. Much improved. Tolerating diet well. Denies any nausea vomiting abdominal pain or diarrhea. No rash
Objective
Data Reviewed
Laboratory Data:
Laboratory Results
10/12/24 07:31
10/12/24 07:31
Laboratory Results
PT 13.4 Sec (11.4-14.6) 10/12/24 07:31
INR 0.99 10/12/24 07:31
Total Bilirubin 0.9 mg/dl (0.2-1.3) 10/12/24 07:31
AST 234 U/L (14-36) H 10/12/24 07:31
ALT 428 U/L (0-35) H 10/12/24 07:31
Alkaline Phosphatase 151 U/L (38-126) H 10/12/24 07:31
Lipase 165 U/L (23-300) 10/11/24 05:00
Vital Signs and I&O:
Vital Signs
Temp Pulse Resp BP Pulse Ox
98.8 F 80 16 152/88 96
10/12/24 07:10 10/12/24 07:10 10/12/24 07:10 10/12/24 07:10 10/12/24 11:08
I&O
10/11/24 10/12/24 10/13/24
06:59 06:59 06:59
Intake Total 1000 / 1000
Balance 1000 / 1000
Physical Exam
Physical Exam
HEENT: Anicteric
Cardiology: Normal Sinus Rhythm
Pulmonary: Clear
GI: Soft and Non Distended
Extremities: No Edema
Neuro: Non Focal
[2024-10-12 15:10] VITALS: BP 144/78
--- NOTE | 2024-10-12 16:20 | CM ---
Patient seen at bedside with physicians. Patient stated that she has no needs at this time for discharge. CM will continue to follow for discharge planning needs.
Plan; home with no needs anticipated
--- NOTE | 2024-10-12 16:58 | W.PN.HOSP.TC ---
Addendum entered and electronically signed by Michelle Peraza MD 10/12/24 19:14:
I saw and evaluated the patient independently. I reviewed the resident�s note and agree with findings and plan as documented by Dr. Crane.
GENERAL: well developed, well nourished, female in no apparent distress
HEENT: NC/AT--no scleral icterus, no jaundice
HEART: regular rate and rhythm, +S1, +S2
LUNGS : clear to auscultation bilaterally
ABDOM: soft, nontender, nondistended, + bowel sounds
EXT: no cyanosis, clubbing, or edema
NEUROLOGIC: grossly intact
Elevated transaminases/Hyperbilirubinemia--Hepatitis secondary to most likely viral infection, less likely autoimmune condition or drug-induced- LFTs improving--lexapro held on admission but will restart at lower dose, hold statin--tylenol level neg
(no rhabdo as CPK WNL)--apprec GI--monospot/hep A,B,C neg--CMV/BART pending-- ESR, CRP elevated--cont IVF--US neg for stones or dilated ducts--no ETOH use--There is no jaundice, hepatomegaly, right upper quadrant tenderness, fatigue or malaise,
pruritus. She does have dark urine and a low-grade fever--Babesia smear is negative
Low-grade fever--still think viral--Patient developed a low-grade fever 100.8, gave Motrin 400 every 6 as needed--Continue to trend fever curve
Leukopenia/thrombocytopenia--suspect viral--Babesia neg--No diarrhea, fatigue or malaise, skin infections, mouth ulcers, frequent or recurrent infections--Patient is stable and no bleeding bruising, petechiae, nosebleeds, gum bleeding. She does
have hematuria.
Hyperlipidemia--Hold rosuvastatin because of hepatotoxic properties
Hypothyroidism--Continue levothyroxine sodium 88 mcg
DVT proph--Lovenox
code status --Full code
if LFTs cont to improve--OK for d/c
Original Note:
Today's Communication/Plan
-
- Gastro is following
- Trend CBC and CMP
- Await results of pending orders
Assessment / Plan
Assessment / Plan
Hepatitis secondary to either viral infection or autoimmune condition or drug-induced
Elevated transaminases
Hyperbilirubinemia:
-Patient has elevated total bilirubin, aminotransferases, urobilinogen
-There is no jaundice, hepatomegaly, right upper quadrant tenderness, fatigue or malaise, pruritus. She does have dark urine and a low-grade fever.
-Ordered a viral hepatitis panel (normal)
-Ordered a cytomegalovirus (pending), Suze-Omer virus, mononucleosis ( normal)
-Ordered ESR and CRP
-Ordered a Tylenol level test (normal)
-Started patient on IV fluids
-Babesia is negative
- Trend LFTs and CBC
-Ordered BART levels for possible autoimmune hepatitis causes (pending)
-Started patients on IV fluids
-Hold all hepatotoxic drugs such as rosuvastatin
-Gastroenterology is Following
Possible Prophyria?
- Based on clinical picture and urine color
- ordered PBG and total porphyrin
Low-grade fever:
-Patient developed a low-grade fever 100.8, gave Motrin 400 every 6 as needed, resolved today
-Continue to trend fever curve
Rhabdomyolysis:
-Patient said that before onset of symptoms she exercised heavier than usual
-No muscle pain, muscle weakness, decreased urine output, confusion, weakness. However there is dark urine.
-Urine analysis shows 16-20 red blood cells.
-Ordered a CPK (normal)
-Ordered a myoglobin (normal)
-Started patient on IV fluids
Leukopenia:
-WBC level is 2.0
-Trend WBC level
-No diarrhea, fatigue or malaise, skin infections, mouth ulcers, frequent or recurrent infections
-Suspect this to be related to hepatic cause
Thrombocytopenia:
-100 which is trending down from 125 on initial admission on October 09, 2024
-Patient is stable and no bleeding bruising, petechiae, nosebleeds, gum bleeding. She does have hematuria.
-Continue to trend platelets
Hyperlipidemia:
-Hold rosuvastatin because of hepatotoxic properties
Hypothyroidism:
-Continue levothyroxine sodium 88 mcg
Depression:
- Lowered dose of lexapro from 30 to 20
DVT prophylaxis is Lovenox 40
Full code
Anticipated Discharge: 24 - 48 hours
Subjective/Interval History
-
Date of Service: October 12, 2024
Objective Data
-
Labs:
Laboratory Results
10/12/24
07:31
WBC 2.0 L*
Hgb 12.3
Hct 34.0 L
Plt Count 103 L
PT 13.4
INR 0.99
Sodium 139
Potassium 3.7
Chloride 110 H
Carbon Dioxide 22
BUN 8
Creatinine 0.6
Glucose 121 H
Calcium 8.5
Total Bilirubin 0.9
AST 234 H
ALT 428 H
Alkaline Phosphatase 151 H
Vital Signs:
Vital Signs
Temp Pulse Resp BP Pulse Ox
99.0 F 75 17 144/78 96
10/12/24 15:10 10/12/24 15:10 10/12/24 15:10 10/12/24 15:10 10/12/24 15:10
I&O
10/11/24 10/12/24 10/13/24
06:59 06:59 06:59
Intake Total 1000 / 1000
Balance 1000 / 1000
Review of Systems
-
History Source: Patient
Constitutional: Denies Fever or Chills
EENT: Denies Tearing
Cardiac: Reports No Symptoms
Abdomen/GI: Reports No Symptoms
Musculoskeletal: Reports No Symptoms
Neuro: Reports No Symptoms
Physical Exam
-
General: Well Developed
Respiratory: Clear to Auscultation
Cardiac: Regular Rhythm and S1/S2
GI: Soft, Nontender, Nondistended and Normal Bowel Sounds
Musculoskeletal: No Clubbing and No Edema
Skin: Warm and Dry
Neuro: Awake, Alert and Oriented
Psych: Calm
Data Reviewed
-
Labs: Labs Reviewed by me and Discussed with Physician
[2024-10-12] MEDS: NSS IV (22:55)
[2024-10-12 23:33] VITALS: BP 140/86
[2024-10-13] MEDS: SYNTHROID 88 MCG PO (06:37)
[2024-10-13 07:56] VITALS: BP 141/86
[2024-10-13 08:02] LABS: INR 0.93
[2024-10-13 08:08] LABS: Hematocrit 33.1 % (37.0-47.0); Mean Corp Hgb Conc. 36.3 g/dL (33.0-37.0); Mean Corpuscular Hgb 29.6 pg (27.0-31.0); Mean Corpuscular Volume 81.7 fL (81.0-99.0); Mean Platelet Volume 9.5 fL (7.4-10.4); Platelet Count 122 10^3/uL (130-400); Red Blood Cell Count 4.05 10^6/uL (4.20-5.40); Red Cell Dist. Width 12.4 % (11.5-14.5); White Blood Cell Count 3.9 10^3/uL (4.8-10.8)
[2024-10-13] MEDS: NSS 1000 IV (08:44)
[2024-10-13 09:06] LABS: ALT (SGPT) 365 U/L (0-35); AST (SGOT) 176 U/L (14-36); Albumin 3.7 g/dl (3.5-5.0); Alkaline Phosphatase 158 U/L (38-126); Blood Urea Nitrogen 6 mg/dl (7-17); Calcium 8.5 mg/dl (8.4-10.2); Carbon Dioxide 20 mmol/L (22-30); Chloride 109 mmol/L (98-107); Direct Bilirubin 0.3 mg/dl (0.0-0.4); Estimated Creatinine Clearance 110 ml/min; Glucose 117 mg/dl (70-99); Potassium 3.8 mmol/L (3.5-5.1); Sodium 139 mmol/L (135-145); Total Bilirubin 0.7 mg/dl (0.2-1.3); eGFR > 60.00
[2024-10-13 09:46] LABS: % Basophils 0.3 % (0-2); % Eosinophils 0.5 % (0-6); % Immature Granulocytes 0.3 % (0-0.5); % Lymphocytes 41.1 % (20.5-51.1); % Monocytes 10.3 % (1.7-9.3); % Neutrophils 47.5 % (42.2-75.2); Absolute Lymphocytes 1.6 10^3/uL (1.2-3.4); Absolute Monocytes 0.4 10^3/uL (0.1-0.6); Absolute Neutrophils 1.9 10^3/uL (1.4-6.5); Nucleated Red Blood Cells % 0 %
--- NOTE | 2024-10-13 10:10 | W.PN.GI.CBS2 ---
Today's Communication / Plan
-
-- ok for discharge from GI perspective. See above
Assessment / Plan
-
Pt is a 49yo with hx graves disease with prior thyroidectomy, HTN, hyperlipidemia, depression recent increased Lexapro dose, with ER eval 10/09 with fever after noted hard workout on 10/08. ER labs with neg flu, WBC 3.1 with platelets 129,000 and
glucose 144 and LFT's were not checked. She was discharged with concern for viral syndrome. She returned with dark urine and nausea. On returns noted with WBC 2.1, platelets 100,000 bili 1,7, AST 356, ALT 552, alk phos 67 albumin 3.6, lipase 165,
CK 98, with UA + for bacteria and bilirubin CK 98. 10/11 US completed with liver normal size. She denies any recent travel, abx, sick contact. No hx prior liver problems. She took new supplement of Creatine Friday and Friday. On Friday she
developed fever up to 102. She persisted with fever and had evaluation in ER and discharged. She returned as noted orange color urine. She admits to multiple supplement but only new supplement was creatine. She did also increased increased
Lexapro dose about 2 weeks ago. She did take 2 doses of Tylenol and 2 doses of Advil after fever symptoms started. No hx ETOH use, tattoos, mushroom ingestion, recent rashes, tick bites, hx hepatitis or prior liver problems.
-fever with bandemia
-increased LFT's with dark urine on admission
-recent hard workout with creatine use prior to admission
-thrombocytopenia
other med problems:
-depression with recent increased dose of Lexapro
-thyroidectomy/ hx graves disease
-HTN
-hyperlipidemia
PLAN:
#hepatocellular injury - normal INR
-- low plts, leukopenia, orange urine, but normal bili
-- urine showed blood, consider screening for AIPorphyia, however, no other symptoms
-- highly likely viral given leukopenia, thrombocytopenia, fever
-- discussed with primary team
-- avoid hepatotoxic medications at this point and AVOID all supplements until LFTs return to normal
-- BART pending
-- normal CK
lyme negative, acute hepatitis panel negative, blood cultures negative thus far
--Liver enzymes continue to improve within normal INR and normal bilirubin
-- I did send and discussed with her PCP about her hospitalization and follow-up
-- Okay to discharge from a GI perspective today, will need lab slips for repeat liver enzymes to go to her PCP in 1 week then serial liver enzymes until resolution
-- Likely all viral. If liver enzymes remain elevated then would need GI follow-up. As for now no GI follow-up necessary
Subjective
Subjective
Date of Service: October 13, 2024
Patient continues to feel well
Objective
Data Reviewed
Laboratory Data:
Laboratory Results
10/13/24 07:23
10/13/24 07:23
Laboratory Results
PT 13.0 Sec (11.4-14.6) 10/13/24 07:23
INR 0.93 10/13/24 07:23
Total Bilirubin 0.7 mg/dl (0.2-1.3) 10/13/24 07:23
AST 176 U/L (14-36) H 10/13/24 07:23
ALT 365 U/L (0-35) H 10/13/24 07:23
Alkaline Phosphatase 158 U/L (38-126) H 10/13/24 07:23
Lipase 165 U/L (23-300) 10/11/24 05:00
Vital Signs and I&O:
Vital Signs
Temp Pulse Resp BP Pulse Ox
98.8 F 77 18 141/86 97
10/13/24 07:56 10/13/24 07:56 10/13/24 07:56 10/13/24 07:56 10/13/24 07:56
I&O
10/12/24 10/13/24 10/14/24
06:59 06:59 06:59
Intake Total 999 / 999 2679 / 2679
Balance 999 / 999 2679 / 2679
Physical Exam
Physical Exam
HEENT: Anicteric
Cardiology: Normal Sinus Rhythm
GI: Soft, Non Distended and Non Tender
Extremities: No Edema
Neuro: Non Focal
[2024-10-13 14:10] LABS: Myoglobin, Urine <1 mg/L (0-1)
--- NOTE | 2024-10-13 15:00 | CM ---
Patient seen at bedside with physician. Patient for discharge home with no needs anticipated at this time. CM will continue to follow for discharge planning needs.
Plan; home with no needs anticipated
[2024-10-13 15:40] VITALS: BP 144/84
--- NOTE | 2024-10-13 19:16 | W.PN.HOSP.TC ---
Addendum entered and electronically signed by Michelle Peraza MD 10/13/24 19:55:
I saw and evaluated the patient independently. I reviewed the resident�s note and agree with findings and plan as documented by Dr. Crane.
GENERAL: well developed, well nourished, female in no apparent distress
HEENT: NC/AT--no scleral icterus, no jaundice
HEART: regular rate and rhythm, +S1, +S2
LUNGS : clear to auscultation bilaterally
ABDOM: soft, nontender, nondistended, + bowel sounds
EXT: no cyanosis, clubbing, or edema
NEUROLOGIC: grossly intact
Elevated transaminases/Hyperbilirubinemia--leaning towards viral infection, less likely autoimmune condition or drug-induced- LFTs improving--lexapro held on admission but will restart at lower dose, hold statin until LFTs return to normal--tylenol
level neg (no rhabdo as CPK WNL)--apprec GI--monospot/hep A,B,C neg--CMV/BART pending-- ESR, CRP elevated--US neg for stones or dilated ducts--no ETOH use--Babesia smear is negative
Low-grade fever--still think viral--Patient developed a low-grade fever 100.8, gave Motrin 400 every 6 as needed--Continue to trend fever curve
Leukopenia/thrombocytopenia--suspect viral--Babesia neg--No diarrhea, fatigue or malaise, skin infections, mouth ulcers, frequent or recurrent infections--Patient is stable and no bleeding bruising, petechiae, nosebleeds, gum bleeding. She does
have hematuria.
Hyperlipidemia--Hold rosuvastatin because of hepatotoxic properties
Hypothyroidism--Continue levothyroxine sodium 88 mcg
DVT proph--Lovenox
code status --Full code
OK for d/c
Original Note:
Today's Communication/Plan
-
- Patient was discharged home today.
Assessment / Plan
Assessment / Plan
Hepatitis secondary to either viral infection or autoimmune condition or drug-induced
Elevated transaminases
Hyperbilirubinemia:
-Patient's bilirubin has normalized with normal INR
-There is no jaundice, hepatomegaly, right upper quadrant tenderness, fatigue or malaise, pruritus. She does have dark urine and a low-grade fever.
-Ordered a viral hepatitis panel (normal)
-Ordered a cytomegalovirus (pending), eptein-Omer virus, mononucleosis ( normal)
-Ordered ESR (normal) and crp elevated ( 36)- could be due to recent acute inflammation process in liver not a specific marker
-Ordered a Tylenol level test (normal)
-Started patient on IV fluids
-Babesia is negative
- Trend LFTs and CBC
-Ordered BART levels for possible autoimmune hepatitis causes (pending)
-Started patients on IV fluids
-Hold all hepatotoxic drugs such as rosuvastatin
- Blood cultures negative
-Gastroenterology is Following and thinks etiology might be viral, okay to discharge from GI perspective, bilirubin is normalized, needs to get LFTs done at PCPs office in 1 week then every 2 weeks thereafter serially and if liver function does not
improve then gastroenterology follow-up, BART still pending
Low-grade fever:
-Patient developed a low-grade fever 100.8, gave Motrin 400 every 6 as needed, resolved today
-Continue to trend fever curve
Rhabdomyolysis:
-Patient said that before onset of symptoms she exercised heavier than usual
-No muscle pain, muscle weakness, decreased urine output, confusion, weakness. However there is dark urine.
-Urine analysis shows 16-20 red blood cells, but not a clean-catch sample
-Ordered a CPK (normal)
-Ordered a myoglobin (normal)
-Started patient on IV fluids
Leukopenia:
-WBC level is 3.9
-Trend WBC level in 1 week at PCP office outpatient
-No diarrhea, fatigue or malaise, skin infections, mouth ulcers, frequent or recurrent infections
-Suspect this to be related to hepatic cause
Thrombocytopenia:
- 122 which is trending down from 125 on initial admission on October 09, 2024
-Patient is stable and no bleeding bruising, petechiae, nosebleeds, gum bleeding. She does have hematuria.
-Continue to trend platelets on CBC in 1 week at PCPs office
Hyperlipidemia:
-Hold rosuvastatin because of hepatotoxic properties until PCP is okay with restarting
Hypothyroidism:
-Continue levothyroxine sodium 88 mcg
Depression:
- Lowered dose of lexapro from 30 to 20
-Hold all supplements until liver function is normalized
DVT prophylaxis is Lovenox 40
Full code
Anticipated Discharge: Today
Subjective/Interval History
-
Date of Service: October 13, 2024
Patient is a 49-year-old female who is full code with a past medical history of hypothyroidism and hyperlipidemia who presented to the emergency department because she had concerns of orange-colored urine. Previously she had presented to the
[place] emergency department on October 09, 2024 for fever unknown origin which was measured at 102 at home and chills. They did a COVID test and influenza test which were both negative. She then took Motrin at home and the fever and the chills
both subsided but then on Friday she started to experience orange-colored urination which was concerning for her. No abdominal pain, body aches, decreased appetite, vomiting, nausea, recent travel, outdoor activity.
Objective Data
-
Labs:
Laboratory Results
10/13/24
07:23
WBC 3.9 L
Hgb 12.0
Hct 33.1 L
Plt Count 122 L
PT 13.0
INR 0.93
Sodium 139
Potassium 3.8
Chloride 109 H
Carbon Dioxide 20 L
BUN 6 L
Creatinine 0.6
Glucose 117 H
Calcium 8.5
Total Bilirubin 0.7
AST 176 H
ALT 365 H
Alkaline Phosphatase 158 H
Vital Signs:
Vital Signs
Temp Pulse Resp BP Pulse Ox
98.7 F 70 16 144/84 100
10/13/24 15:40 10/13/24 15:40 10/13/24 15:40 10/13/24 15:40 10/13/24 15:40
I&O
10/12/24 10/13/24 10/14/24
06:59 06:59 06:59
Intake Total 1000 / 1000 2680 / 2680
Balance 1000 / 1000 0 / 2680
Review of Systems
-
History Source: Patient
Constitutional: Denies Fever or Chills
EENT: Denies Tearing
Cardiac: Reports No Symptoms
Abdomen/GI: Reports No Symptoms
Musculoskeletal: Reports No Symptoms
Neuro: Reports No Symptoms
Physical Exam
-
General: Well Developed
Respiratory: Clear to Auscultation
Cardiac: Regular Rhythm and S1/S2
GI: Soft, Nontender, Nondistended and Normal Bowel Sounds
Musculoskeletal: No Clubbing and No Edema
Skin: Warm and Dry
Neuro: Awake, Alert and Oriented
Psych: Calm
Data Reviewed
-
Labs: Labs Reviewed by me and Discussed with Physician
[2024-10-13 23:28] LABS: CMV IgG Antibody <0.20 U/mL (<=0.70)
--- NOTE | 2024-10-13 23:28 | W.DCSUMMARY ---
Addendum entered and electronically signed by Michelle Peraza MD 10/14/24 07:08:
Read, reviewed, and agree. See same day progress note for additional details. Time spent coordinating care, DC planning, review of DC plan of care with resident, transition of care, review of records in EMR, med rec, consults, notes, d/w
consultants, nursing, family, and CM = 32 minutes
Etiology was most likely viral given LFT abnormalities, leukopenia, thrombocytopenia. However, no discrete virus was identified at this time.
In addition, patient Synthroid was always 88 mcg not 125 is previously listed below. We made no changes to her Synthroid dosing.
We did instruct the patient to hold her rosuvastatin until her LFTs normalize as well as go back to the 20 mg of Lexapro until her LFTs normalize. At that time, she can discuss with her primary care physician increasing the dose of Lexapro back to
30 mg and restarting rosuvastatin.
If there are any questions regarding this dictation or her hospital stay, please not hesitate to call. Our office number is [phone].
Original Note:
Discharge Summary
Discharge Data
Date of Admission: 10/11/24
Date of Discharge: 10/13/24
-
Pending Results: Yes
Hospital Course
Discharging Physician : Dr. Michelle Peraza
Disposition : Home
Primary care physician : Dr. Stefanie Vilchis
Principal Discharge diagnosis : Hepatocellular injury
Chronic Discharge diagnosis : Elevated transaminases, Hyperlipidemia, Hypothyroidism, Leukopenia, thrombocytopenia
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
urination. Previously just 3 days before this ER visit, she presented to another ER for symptoms of chills and an at home measured temperature of 102. COVID and influenza screening was performed and both were negative. The chills and fever subsided
then she presented to the [place] ER with orange coloured urine.
On her intial labs on admission, she had a WBC count of 2.1, Platlet count of 100, AST 356, ALT 552, ALP 167. An abdominal ultrasound was performed which was unremarkable. Our differential diagnosis were Hepatitis due to a viral cause, autoimmune
cause, or drug induced cause. We ordered hepatitis panels which were negative. we ordered a CMV, EBV, and [place] testing of which EBV and mono were negative. CMV is still pending. We ordered an BART to test for autoimmune causes and its still pending.
We ordered a tylenol drug screen which turned out to be negative. ESR was normal and CRP was elevated at 36 which wasn't very specific. Her liver dysfunction most likely caused the reactive leucopenia and thrombocytopenia. Gastroenterology was
consulted and also agreed the cause is viral in nature. Visit outpatient PCP and get CBC, CMP, and LFT's in 1 week then every 2 weeks serially until normalized. If they dont normalize, then GI visit is neccessary. At time of discharge the
transaminases were trending down AST 176, ALT 365, and alkaline phosphatase 158. WBC 3.9 and platelets 122. Stable on discharge.
She had one episode of low grade fever 100.3 which resolved with usage of motrin.
Parasitic causes like babesia were ruled out on blood smear.
Also considered rhabdomyolysis but that was ruled out due to normal Creatinine phosphokinase and myoglobin.
Hyperlipidemia: statin is on hold until liver function stabilizes and PCP makes the decision to incorporate back into medical regime. Stable on discharge.
Hypothyroidism: synthroid dose was reduced from 125 to 88.
Depression: Lexapro was reduced from 30 mg to 20 mg because we suspect an increase in her drug combined with statin and underlying viral infection could have contributed to her presentation. . Hold until liver function normalizes. Please consult PCP
for further management.
Important imaging findings :
Abdominal ultrasound- 10/11/24
The liver is normal in size, measuring 16.0 cm on the right, with a smooth capsular contour and homogeneous echogenicity. There is no focal hepatic lesion or intrahepatic biliary dilation. The pancreas is not well visualized. The spleen is normal
in size and shows no focal abnormality. No signs of hydronephrosis, mass or calculi are seen in either kidney. The right kidney measured 9.7 cm in greatest length; the left kidney measured 11.8 cm in greatest length. No free fluid is seen in the
abdomen. No evidence of abdominal aortic aneurysm. The inferior vena cava is now well visualized.
Procedure findings :
Discharge Plan
-
Patient Disposition: Home (Routine Discharge)
Discharge Diagnosis/Procedures: Acute hepatitis secondary to viral infection/autoimmune condition/drug-induced, elevated transaminases, hyperbilirubinemia, rhabdomyolysis, leukopenia, thrombocytopenia, hyperlipidemia, hypothyroidism, depression
Condition: Good
Diet: Low Cholesterol
Activity: No restrictions
Driving Restrictions: As prior to admission
Bathing Restrictions: None
Blood Work: CMP in 1 week with PCP
CBC 1 week with PCP
LFTs in 1 week with PCP then every 2 weeks until resolution
BART is pending
Referrals:
Stefanie Vilchis PA-C [Family Provider] - in less than 1 week
Hortencia Wyatt, [Active] - in two to four weeks (If liver enzymes remain high after serial testing)
Additional Discharge Medication Instructions: Hold rosuvastatin until seen by PCP
Hold all supplements until LFTs returned to normal
Lexapro is decreased from 30 mg to 20 mg
Prescriptions:
Continued
levothyroxine [Synthroid] 88 mcg Tablet
88 mcg PO DAILY Qty: 30 0RF
ibuprofen [Advil] 200 mg Tablet
400 mg PO Q8HPRN PRN (Reason: mild pain) 30 Days Qty: 30 0RF
loratadine [Claritin] 10 mg Tablet
10 mg PO DAILY Qty: 30 0RF
Changed
escitalopram oxalate [Lexapro] 20 mg Tablet
20 mg PO HS 30 Days Qty: 30 0RF
Held
rosuvastatin [Crestor] 5 mg Tablet
5 mg PO QPM
Hold Instructions: Resume on 10/20/24. hold until seen by your PCP
Discontinued
acetaminophen [Tylenol] 325 mg Tablet
650 mg PO Q4HPRN PRN (Reason: fever)
ascorbic acid (vitamin C) [Vitamin C] 500 mg Tablet
500 mg PO DAILY
Theragran Liquid
10 ml PO DAILY
Patriot 3 Fish Oil 684-1,200 mg Capsule,Delayed Release(Dr/Ec)
1 cap PO DAILY
cholecalciferol (vitamin D3) [Vitamin D3] 50 mcg (2,000 unit) Tablet
50 mcg PO DAILY
coQ10 (ubiquinol) 100 mg Capsule
100 mg PO DAILY
Beet Root Tablets
1 tab PO DAILY
Slynd 4 mg (28) Tablet
4 mg PO DAILY
Discharge Orders:
Discharge Patient (As Directed); Ordered 10/13/24
Ordered By: German Crane
Discharge Date and Time
Discharge Date/Time: 10/13/24 15:58
Print Language: ETHIOPIAN
--- NOTE | 2024-10-14 13:46 | PN.CDI ---
Addendum entered and electronically signed by Michelle Peraza MD 10/14/24 14:24:
Documentation complete.
Pt is NOT pancytopenic (HGB is WNL)
Original Note:
CDI
- -
CDI:
Physician Documentation Request
Admit Date: 10/11/24 12:35
Dear Doctor Rosa Maria,
Please review the following and provide your response in the progress notes.
Clinical Indicators:
Laboratory Tests
10/12/24 10/13/24
07: 07:23
WBC 2.0 L* 3.9 L
RBC 4.17 L 4.05 L
Plt Count 103 L 122 L
Based on the above and your clinical assessment, please clarify the appropriate diagnosis, if significant, that supports the above abnormalities and additional evaluation, monitoring and/or treatment rendered:
Pancytopenia
Abnormal lab values, clinically insignificant
Other(please specify)
Use of terms such as suspected, likely, concern for, or probable (associated with a specific diagnosis that is being evaluated, monitored, or treated as if it exists) are acceptable and can be coded in the inpatient setting, when documented at the
time of discharge.
Thank you,
Michelle Bahena RN BSN CCDS
CDI Specialist
Please contact via tiger text
Please use your independent medical judgment in providing your response.
--- NOTE | 2024-10-14 13:52 | PN.CDI ---
Addendum entered and electronically signed by Michelle Peraza MD 10/14/24 14:25:
documentation is complete
pt is not septic
Original Note:
CDI
- -
CDI:
Physician Documentation Request
Admit Date: 10/11/24 12:35
Dear Doctor Rosa Maria,
Please review the following and provide your response in the progress notes.
Clinical Indicators:
H+P, 10/11
#Low-grade fever--still think viral--Patient developed a low-grade fever 100.8,...
#...Leukopenia/thrombocytopenia--suspect viral--
GI PN, 10/13
#hepatocellular injury - normal INR
#...-- low plts, leukopenia, orange urine, but normal bili
#...-- urine showed blood, consider screening for AIPorphyia, however, no other symptoms
#...-- highly likely viral given leukopenia, thrombocytopenia, fever
#...-- avoid hepatotoxic medications at this point and
#...AVOID all supplements until LFTs return to normal
#--Liver enzymes continue to improve within normal INR and normal bilirubin
Discharge Summary, 10/14
#...Etiology was most likely viral given LFT abnormalities, leukopenia, thrombocytopenia. #...However, no discrete virus was identified at this time.
Laboratory Tests
10/11/24 10/12/24 10/13/24
05:00 07:31 07:23
WBC 2.1 L* 2.0 L* 3.9 L
Band Neutrophils 14 H 13 H
Selected Entries
10/11/24
15:34
Temp 100.8 F H
Pulse 92
Laboratory Tests
10/11/24
05:00
Total Bilirubin 1.7 H
AST 356 H
ALT 552 H*
Alkaline Phosphatase 167 H
Based on the above and your clinical assessment, please clarify which of the following most accurately describes the status of the patient's infection:
Atypical Sepsis/Severe Sepsis, POA
- Sepsis with associated acute organ dysfunction, such as hepatic
-or respiratory failure
- Documentation should indicate the association between the sepsis
-and the organ dysfunction
Viral Sepsis/Sever Sepsis, POA
Localized Infection Only, Without Systemic Illness
- indicate the site/source, such as UTI, pneumonia e
Other(please specify)
Sepsis
- Systemic manifestations of infection, with 2 or more SIRS criteria which include:
- Fever >100.9 degrees F or hypothermia < 96.8 degrees F
- Leukocytosis - WBC > 12,000 or leukopenia - WBC < 4,000 or > 10% bands
- Tachycardia > 90 beats per minute
- Tachypnea - RR > 20 breaths per minute or PaCO2 , 32mmHg
Source: Merck Manual 2013
- Indicate the known or suspected underlying infection, such as UTI, pneumonia or cellulitis
Use of terms such as suspected, likely, concern for, or probable (associated with a specific diagnosis that is being evaluated, monitored, or treated as if it exists) are acceptable and can be coded in the inpatient setting, when documented at the
time of discharge.
Thank you,
Michelle Bahena RN BSN CCDS
CDI Specialist
Please contact via tiger text
Please use your independent medical judgment in providing your response.
[2024-10-14 23:30] LABS: ANA, IgG Reflex to HEp-2 Detected (None Detected)
[2024-10-15 20:22] LABS: Anaplasma phagocytophilum IgG <1:80 (<1:80); Anaplasma phagocytophilum IgM < 1:16 (< 1:16)
[2024-10-16 08:03] LABS: ANA, HEp-2, IgG Detected (<1:80)
[2024-10-18 12:05] LABS: ANA Pattern Nuclear Dot
== END 2024-10-13 15:58 | disposition home or self-care (01) | DRG 443 ==
LOC: 2 NORTH 12:35
PROVIDERS: Internal Medicine; Nurse Practitioner Adult Health; Physician Assistant; ADMITTING PHYSICIAN Internal Medicine; CONSULT PHYSICIAN Internal Medicine; EMERGENCY PHYSICIAN Student in an Organized Health Care Education/Training Program; FAMILY PHYSICIAN Physician Assistant Medical
DX: B17.9 Acute viral hepatitis, unspecified (principal); E78.00 Pure hypercholesterolemia, unspecified; E89.0 Postprocedural hypothyroidism; D72.819 Decreased white blood cell count, unspecified; D69.6 Thrombocytopenia, unspecified; F32.A Depression, unspecified; T43.225A Adverse effect of selective serotonin reuptake inhibitors, initial encounter; Z88.1 Allergy status to other antibiotic agents; Z79.890 Hormone replacement therapy; I10 Essential (primary) hypertension; D72.825 Bandemia; R73.03 Prediabetes; Z88.0 Allergy status to penicillin
CPT/HCPCS: 76700; 80053; 80143; 81003; 81015; 82248; 82550; 83690; 83874; 85025; 85610; 85652; 86038; 86039; 86140; 86308; 86618; 86644; 86666; 86704; 86706; 86708; 86803; 87015; 87040; 87086; 87207; 87340; 99285

== ENCOUNTER → 2024-10-19 10:07 | Outpatient (REF) | payer OTHER, SELFPAY ==
[2024-10-19 12:19] LABS: % Basophils 0.3 % (0-2); % Eosinophils 0.7 % (0-6); % Immature Granulocytes 0.3 % (0-0.5); % Lymphocytes 32.7 % (20.5-51.1); % Monocytes 7.2 % (1.7-9.3); % Neutrophils 58.8 % (42.2-75.2); Absolute Eosinophils 0.1 10^3/uL (0-0.7); Absolute Lymphocytes 2.3 10^3/uL (1.2-3.4); Absolute Monocytes 0.5 10^3/uL (0.1-0.6); Absolute Neutrophils 4.1 10^3/uL (1.4-6.5); Hematocrit 36.8 % (37.0-47.0); Mean Corp Hgb Conc. 35.3 g/dL (33.0-37.0); Mean Corpuscular Volume 84.8 fL (81.0-99.0); Mean Platelet Volume 10.1 fL (7.4-10.4); Nucleated Red Blood Cells % 0 %; Platelet Count 344 10^3/uL (130-400); Red Blood Cell Count 4.34 10^6/uL (4.20-5.40); Red Cell Dist. Width 12.9 % (11.5-14.5)
[2024-10-19 13:46] LABS: ALT (SGPT) 124 U/L (0-35); AST (SGOT) 32 U/L (14-36); Albumin 4.8 g/dl (3.5-5.0); Alkaline Phosphatase 134 U/L (38-126); Direct Bilirubin 0.3 mg/dl (0.0-0.4); Total Bilirubin 0.8 mg/dl (0.2-1.3); Total Protein 7.4 g/dl (6.3-8.2)
[2024-10-19 14:28] LABS: Glycohemoglobin (HgbA1c) 5.5 % (4.0-5.6)
[2024-10-19 20:12] LABS: GGTP 373 U/L (12-43)
== END ==
LOC: HWLAB 10:07
PROVIDERS: ATTENDING PHYSICIAN Student in an Organized Health Care Education/Training Program
DX: D72.819 Decreased white blood cell count, unspecified (principal); R79.89 Other specified abnormal findings of blood chemistry; R73.03 Prediabetes
CPT/HCPCS: 36415; 80076; 82977; 83036; 85025

== ENCOUNTER → 2024-11-09 08:19 | Outpatient (REF) | payer OTHER, SELFPAY ==
[2024-11-09 09:33] LABS: Alkaline Phosphatase, Total 50 U/L (38-126); GGTP 109 U/L (12-43)
[2024-11-09 10:29] LABS: Ferritin 44.1 ng/ml (6.24-137)
[2024-11-09 11:20] LABS: Alk Phos After Heat < 20
[2024-11-10 23:51] LABS: IgA 129 mg/dl (70-400); IgG 881 mg/dl (700-1600); IgM 346 mg/dl (40-230)
[2024-11-11 12:02] LABS: 5' Nucleotidase Results 12 U/L (0-15)
[2024-11-11 12:10] LABS: Ceruloplasmin 31 mg/dL (16-45)
[2024-11-11 13:51] LABS: IgG Subclass 1 383 mg/dL (240-1118); IgG Subclass 2 308 mg/dL (124-549); IgG Subclass 3 41 mg/dL (21-134); IgG Subclass 4 42 mg/dL (1-123)
[2024-11-11 21:38] LABS: LKM-1 Ab (IgG) 0.7 U (0.0-24.9); Soluble Liver Antigen Ab 1.1 U (0.0-24.9)
== END ==
LOC: REG 08:19
PROVIDERS: ATTENDING PHYSICIAN Internal Medicine; FAMILY PHYSICIAN Student in an Organized Health Care Education/Training Program
DX: R74.01 Elevation of levels of liver transaminase levels (principal); D69.6 Thrombocytopenia, unspecified
CPT/HCPCS: 36415; 82103; 82104; 82390; 82728; 82784; 82787; 82977; 83516; 83915; 84078; 86376; 86381

== ENCOUNTER → 2024-12-15 14:26 | Outpatient (REF) | payer OTHER, SELFPAY ==
[2024-12-15 15:58] LABS: Blood Urea Nitrogen 12 mg/dl (7-17); Calcium 9.3 mg/dl (8.4-10.2); Carbon Dioxide 20 mmol/L (22-30); Chloride 110 mmol/L (98-107); Glucose 111 mg/dl (70-99); HDL Cholesterol 56 mg/dl; LDL Cholesterol, Calculated 199 mg/dl; Potassium 4.6 mmol/L (3.5-5.1); Sodium 138 mmol/L (135-145); Total Cholesterol 278 mg/dl (50-199); Triglyceride 119 mg/dl (10-149); Very Low Density Lipoprotein 23 mg/dl (0-30); eGFR > 60.00
== END ==
LOC: CLAB 14:26
PROVIDERS: ATTENDING PHYSICIAN Student in an Organized Health Care Education/Training Program
DX: E66.9 Obesity, unspecified (principal); F32.A Depression, unspecified
CPT/HCPCS: 80048; 80061

== ENCOUNTER → 2025-04-02 14:10 | Outpatient (REF) | payer OTHER, SELFPAY | LOC: WDC 14:10 | PROVIDERS: ATTENDING PHYSICIAN Obstetrics & Gynecology; FAMILY PHYSICIAN Student in an Organized Health Care Education/Training Program | DX: Z12.31 Encounter for screening mammogram for malignant neoplasm of breast (principal) | CPT/HCPCS: 77063; 77067 ==